=== PATIENT | male | born 1980 | race African-American/Black ===

== ENCOUNTER 2025-01-15 10:26 | Outpatient (REF) | payer OTHER, BC, SELFPAY ==
--- NOTE | ~2025-01-15 | XR_ITS ---
EXAMINATION: XR SHOULDER 2 OR MORE VIEWS RIGHT HISTORY: M25.519 - Pain in unspecified shoulder COMPARISON: There are no prior studies available for comparison. FINDINGS: Three views of the right shoulder are submitted. Osseous mineralization is normal. There is no fracture or dislocation. The glenohumeral joint is maintained. There is mild narrowing of the AC joint. The soft tissues are unremarkable. XR/XR shoulder RT min 2V IMPRESSION: Mild narrowing of the AC joint. Electronically signed by: Nickolas Ulloa MD 01/15/2025 02:39 PM EDT RP
--- OUTSIDE RECORDS SUMMARY | 2025-01-16 10:27 | XMS_ITS | Clinical Summary ---
Author Organization [facility] Address [address] [place] [address] Care Team Providers Care Health Safety Manager Name Role Phone Unavailable Primary Care Provider [...] 2023 Fecal DNA 2023 Flexible Sigmoidoscopy 2023 [id number] ( season) 2024 021, 10/25/2020 Alcohol and Drug Screen 06/24/2024 Depression Annual Screen 06/24/2024 Imm-Influenza (#1) 2025 Insurance [employer]
--- OUTSIDE RECORDS SUMMARY | 2025-01-16 10:27 | XMS_ITS | Clinical Summary ---
Author Organization [facility] ity Address [address] [place] [address] Care Team Providers Care Liquid Hydrogen Plant Operator Name Role Phone Unavailable Primary Care Provider [...]
--- OUTSIDE RECORDS SUMMARY | 2025-01-16 10:27 | XMS_ITS | Clinical Summary ---
Author Organization [facility] Address [address] [place] [address] Care Team Providers Care Mailhouse Operator Name Role Phone Kathi Boss CHLORINE OPERATOR Primary Care Provider +1- [phone] Allergies No known active allergies Medications No [...] on file Legal Sex Male 8:41 AM [facility] Gender Identity Not on file Sexual Orientation [...] Discontinued 01/16/2021, 10/25/2020 Insurance [employer] Care Teams Mailhouse Operator Relationship Specialty Start Date End Date Kathi Boss NP [address] [place] [id number] PCP - General Family Medicine 04/16/22
== END 2025-01-15 10:27 | disposition home or self-care (01) ==
LOC: HO.HOSX 10:26
PROVIDERS: Visit Provider Physician Assistant
DX: M19.011 Primary osteoarthritis, right shoulder (principal); M25.511 Pain in right shoulder; M24.811 Other specific joint derangements of right shoulder, not elsewhere classified
CPT/HCPCS: 73030; 99202

== ENCOUNTER 2025-01-15 14:22 | Outpatient (AMB) | payer OTHER, SELFPAY ==
--- OUTSIDE RECORDS SUMMARY | 2025-01-15 14:24 | XMS_ITS | Clinical Summary ---
Author Organization [facility] Address [address] [place] [address] Care Team Providers Care Medical Auditor Name Role Phone Kathi Boss AUTOMOTIVE WORKER Primary Care Provider +1- [phone] Allergies No known active allergies Medications No known medications Active Problems Problem Noted Date Diagnosed Date Mood disorder 04/16/2022 Overview (04/16/2022): Followed by psychology Immunizations Immunization Administration Dates Next Due Td, 2 Lf, Preservative Free, adsorbed 02/21/2014 Tdap 08/05/2017 Family History Medical History Relation Comments Heart attack Maternal Grandfather early 60's Heart attack Maternal Grandmother late 60's Relation Status Comments Father Alive Maternal Grandfather Maternal Grandmother Mother Alive Social History Tobacco Use Types Packs/Day Years Used Date Smoking Tobacco: Never Smokeless Tobacco: Never Alcohol Use Standard Drinks/Week Comments Yes 6 (1 standard drink = 0.6 oz pur e alcohol) PHQ-2 Answer Date Recorded Depression Risk (PHQ2) Score 0 08/2021 Sex and Gender Information Value Date Recorded Sex Assigned at Not on file Legal Sex Male 8:41 AM [facility] Gender Identity Not on file Sexual Orientation Not on file Last Filed Vital Signs Vital Sign Reading Time Taken Comments Blood Pressure 135/72 08/21/2022 10:01 AM EST Pulse 69 08/21/2022 10:01 AM EST Temperature 36.5 C (97.7 F) 08/21/2022 10:01 AM EST Respiratory Rate 14 07/09/2020 10:15 AM EST Oxygen Saturation 96% 08/21/2022 10:01 AM EST Inhaled Oxygen Concentration - - Weight 98.7 kg (217 lb 9.6 oz) 08/21/2022 10:01 AM EST Height 188 cm (6' 2 ) 07/04/2020 7:20 AM EST Body Mass Index 27.94 07/04/2020 7:20 AM EST Plan of Treatment Health Maintenance Due Date Last Done Comments CT Colonography 1978 Cologuard 1978 Colonoscopy 1978 Colorectal Cancer Screening 1978 FOBT/FIT 1978 Hepatitis C Screening 1978 Sigmoidoscopy 1978 PHQ-9 Depression Screen 1990 BESSY-7 Anxiety Screen 02/05/1996 Annual Preventive Exam 04/16/2023 04/16/2022 Influenza Vaccine (#1) 2025 DTaP,Tdap,and Td Vaccines (2 - Td or Tdap) 08/05/2027 08/05/2017, 02/21/2014 RSV Vaccine (SCDM) (1 - 1-do se 75+ series) 2053 COVID-19 Vaccine Discontinued 01/16/2021, 10/25/2020 Insurance [employer] Care Teams Medical Auditor Relationship Specialty Start Date End Date Kathi Boss NP [address] [place] [id number] PCP - General Family Medicine 04/16/22
--- OUTSIDE RECORDS SUMMARY | 2025-01-15 14:24 | XMS_ITS | Clinical Summary ---
Author Organization [facility] ity Address [address] [place] [address] Care Team Providers Care Heat Treat Technician Name Role Phone Unavailable Primary Care Provider Unavailabl e Social History Tobacco Use Types Packs/Day Years Used Date Smoking Tobacco: Never Assessed Sex and Gender Information Value Date Recorded Sex Assigned at Not on file Legal Sex Male 1:13 PM EST Gender Identity Not on file Sexual Orientation Not on file Plan of Treatment Health Maintenance Due Date Last Done Comments DTaP,Tdap,and Td Vaccines (1 - Tdap) 1997 Hepatitis B Vaccines (1 of 3 - 19+ 3-dose series) 1997 COVID-19 Vaccine (2023-2 5 season) 2024 Depression Screening 06/24/2024 Influenza Vaccine (#1) 2025 HIB Vaccines Aged Out No longer eligi ble based on patient's age to complete this topic HPV Vaccines Aged Out No longer eligi ble based on patient's age to complete this topic Hepatitis A Vaccines Aged Out No long er eligible based on patient's age to complete this topic IPV Vaccines Aged Out No longer eligi ble based on patient's age to complete this topic MMR Vaccines Aged Out No longer eligi ble based on patient's age to complete this topic Meningococcal ACWY Vaccine Aged Out N o longer eligible based on patient's age to complete this topic Meningococcal B Vaccine Aged Out No l onger eligible based on patient's age to complete this topic Pneumococcal Vaccine: Pediat rics (0 to 5 Years) and At-Risk Patients (6 to 49 Years) Aged Out No longer eligible b ased on patient's age to complete this topic RSV Immunization Patients Un elpidio 20 months Aged Out No longer eligible b ased on patient's age to complete this topic Varicella Vaccines Aged Out No longer eligible based on patient's age to complete this topic
--- OUTSIDE RECORDS SUMMARY | 2025-01-15 14:24 | XMS_ITS | Clinical Summary ---
Author Organization [facility] Address [address] [place] [address] Care Team Providers Care Caterer'S Aide Name Role Phone Unavailable Primary Care Provider Unavailabl e Source Comments PLEASE NOTE, if this patient is a minor, it may be UNLAWFUL to discuss sensitive information that is contained in these records (such as FAMILY PLANNING, MENTAL HEALTH or SUBSTANCE ABUSE) with the minor patient's parent or other person without the patient's specific authorization.[facility] Immunizations Immunization Administration Dates Next Due PFIZER COVID VACCINE, PURPLE CAP, 12+ 01/16/2021 ,10/25/2020 Social History Tobacco Use Types Packs/Day Years Used Date Smoking Tobacco: Never Assessed Social Connections Answer Date Recorded Social Connections and Isolation 0 10/25/2020 Financial Resource Strain Answer Date R ecorded Financial Resource Strain 0 2020 Stress Answer Date Recorded Stress 0 10/25/2020 Physical Activity Answer Date Recorded Physical Activity 0 10/25/2020 Food Insecurity Answer Date Recorded Food 0 10/25/2020 Transportation Needs Answer Date Record ed Transportation 0 10/25/2020 Housing Stability Answer Date Recorded Housing 0 10/25/2020 Safety and Environment Answer Date Joaquin rded Safety 0 10/25/2020 Utilities Answer Date Recorded Utilities 0 10/25/2020 Employment Answer Date Recorded Employment 0 10/25/2020 Sex and Gender Information Value Date Recorded Sex Assigned at Not on file Legal Sex Male 6:03 AM PDT Gender Identity Not on file Sexual Orientation Not on file Plan of Treatment Health Maintenance Due Date Last Done Comments Anxiety Screening 1978 Diabetes Screening 1978 Hepatitis C Screening 1978 Lipid Screening 1978 Tobacco Screening 1978 HIV Screening 1993 Hypertension Screening (#1) 02/05/1996 Imm-DTaP/Tdap/Td (1 - Tdap) 1997 Imm-Hepatitis B (1 of 3 - 19 + 3-dose series) 1997 CT Colonography 2023 Colonoscopy 2023 Colorectal Cancer Screening 2023 FIT/gFOBT 2023 Fecal DNA 2023 Flexible Sigmoidoscopy 2023 [id number] ( season) 2024 021, 10/25/2020 Alcohol and Drug Screen 06/24/2024 Depression Annual Screen 06/24/2024 Imm-Influenza (#1) 2025 Insurance [employer]
--- NOTE | 2025-01-15 14:38 | A.OFFVIS_ITS ---
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 Patient was seen at [facility] in [place] following his injury, they placed him on light duty until 10/26/24 and was ordered physical therapy. Patient reports pain is located on the top part of his shoulder, near his clavicle. He states ongoing pain that is described as a pinch sensation. His pain increases with throwing and pulling motions. Complaints of numbness and tingling with resting on his right side. He has attended physical therapy, with great improvement. 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 Musa is a 44-year-old right-hand dominant male who presents to the office today after a workman's comp injury that he sustained on 09/02/2024. He states t hat he was going to lift a large object up onto a truck. He felt immediate right shoulder pain on the top of his shoulder. After that he has been having difficulty with overhead motion. He has been attending physical therapy and has noticed a difference. However, he continues to have pain and difficulty with motion. [facility] Surgical History (Updated 01/15/25 @ 14:53 by MELQUIADES Virk) Hx of foot surgery Social History (Updated 01/15/25 @ 14:47 by SMA Marie) Patient Tobacco Use Status: Never used Tobacco Current occupation: food service driver, rt hand Review of Systems Const All systems reviewed & are unremarkable except as noted in HPI and below Physical Exam Vital Signs: BMI result Body Mass Index 28.9 Const General: cooperative, healthy appearing and no acute distress Resp Effort & Inspection: normal respiratory effort and able to speak in complete sentences Extrem Other: Right shoulder: Normal to inspection. Tenderness to palpation over the AC joint. Full shoulder ROM in all planes. Positive cross-body reach. 4/5 empty can. Negative drop arm. NVI. Assessment & Plan Assessment & Plan (1) Internal derangement of right shoulder: Code(s): M24.811 - Other specific joint derangements of right shoulder, not elsewhere classified Category: Medical (2) Arthritis of right acromioclavicular joint: Code(s): M19.011 - Primary osteoarthritis, right shoulder Category: Medical Plan Mr. Musa is a 44-year-old right-hand dominant male who presents to the office today after a workman's comp injury that he sustained on 09/02/2024. He states that he was going to lift a large object up onto a truck. He felt immediate right shoulder pain on the top of his shoulder. After that he has been having difficulty with overhead motion. He has been attending physical therapy and has noticed a difference. However, he continues to have pain and difficulty with motion. While in the office today, I discussed conservative treatment options including cortisone injection and physical therapy. At this time the patient has been medicating a lot of his time to physical therapy and rehabilitation. At this time I feel it is most appropriate to move forward with an MRI to further evaluate the integrity of the right shoulder and surrounding structures. He does have some weakness with rotator cuff testing and tenderness to palpation over the AC joint. He will continue his light duty restrictions for the next 6 weeks. An MRI has been ordered while in the office today and he will contact me once the MRI has been completed to schedule follow-up to discuss the treatment plan. X-rays of the right shoulder which were obtained while in the office today and were reviewed by me, Leah Stevens PA-C, revealed no acute abnormalities. AC joint arthritis. Orders: Orders XR shoulder RT min 2V Today M25.519 - Pain in unspecified shoulder Coding Level of Care Code New Pt Level 4 (99021) Diagnoses Internal derangement of right shoulder M24.811 Arthritis of right acromioclavicular joint M19.011
[2025-01-15 14:40] VITALS: BMI 28.9
== END 2025-01-15 15:11 | disposition home or self-care (01) ==
LOC: HO.HOS 14:23
PROVIDERS: Visit Provider Physician Assistant
DX: M24.811 Other specific joint derangements of right shoulder, not elsewhere classified (principal); M19.011 Primary osteoarthritis, right shoulder
CPT/HCPCS: 99204

== ENCOUNTER → 2025-01-15 14:26 | Outpatient (BNV) | payer OTHER, SELFPAY | PROVIDERS: Visit Provider Radiology Diagnostic Radiology | DX: M19.011 Primary osteoarthritis, right shoulder (principal) | CPT/HCPCS: 73030 ==

== ENCOUNTER → 2025-02-10 17:49 | Outpatient (BNV) | payer OTHER, SELFPAY | PROVIDERS: Visit Provider Specialist | DX: M19.011 Primary osteoarthritis, right shoulder (principal) | CPT/HCPCS: 73221 ==

== ENCOUNTER 2025-02-10 18:47 | Outpatient (REF) | payer OTHER, SELFPAY ==
--- NOTE | ~2025-02-10 | MR_ITS ---
CLINICAL HISTORY: INTERNAL DERANGEMENT MR right shoulder without gadolinium Comparison: None provided Findings: No acute fracture or pathologic bone lesion. There are arthritic changes in the acromioclavicular joint. Type II acromion. No joint effusion. No rotator cuff tears. No tears of the long head of biceps tendon. Glenoid labrum is intact. IMPRESSION: 1. No acute findings. 2. AC joint arthritic changes This document has been electronically signed by: Alo Weathers MD on 02/12/2025 09:06:46
--- OUTSIDE RECORDS SUMMARY | 2025-02-10 18:50 | XMS_ITS | Clinical Summary ---
Author Organization [facility] ity Address [address] [place] [address] Care Team Providers Care Umbrella Mender Name Role Phone Unavailable Primary Care Provider [...]
--- OUTSIDE RECORDS SUMMARY | 2025-02-10 18:50 | XMS_ITS | Clinical Summary ---
Author Organization [facility] Address [address] [place] [address] Care Team Providers Care Pump Station Operator Name Role Phone Kathi Boss SPAR MACHINE OPERATOR HELPER Primary Care Provider +1- [phone] Allergies No known active allergies Medications No [...] on file Legal Sex Male 8:41 AM [facility] Gender Identity Not on file Sexual Orientation [...] Discontinued 01/16/2021, 10/25/2020 Insurance [employer] Care Teams Pump Station Operator Relationship Specialty Start Date End Date Kathi Boss NP [address] [place] [id number] PCP - General Family Medicine 04/16/22
== END 2025-02-10 18:48 | disposition home or self-care (01) ==
LOC: HO.MRI 18:47
PROVIDERS: Visit Provider Physician Assistant
DX: M24.811 Other specific joint derangements of right shoulder, not elsewhere classified (principal); M19.011 Primary osteoarthritis, right shoulder
CPT/HCPCS: 73221

== ENCOUNTER 2025-03-02 11:21 | Outpatient (AMB) | payer OTHER, SELFPAY ==
--- NOTE | 2025-03-02 11:26 | A.OFFVIS_ITS ---
Intake Visit Reasons: ov- RT shoulder MRI review, DOI 09/02/24 Intake Note: Arie is a 45 year old right hand dominant male who presents today for a MRI review of his right shoulder, WC 09/02/24. Patient reports he has improved in his pain slightly with the help of physical therapy and working light duty. He mentions that he feels an ache when he is doing a pulling motion. IMPRESSION: 1. No acute findings. 2. AC joint arthritic changes Allergies No Known Allergies Allergy (Verified 03/02/25 11:31) HPI HPI ov- RT shoulder MRI review, DOI 09/02/24: Details: Mr. Musa is a 45-year-old male who presents to the office today for follow-up status post right shoulder MRI review. Date of injury was on 09/02/2024 when he was trying to lift a large object onto a truck. This happened during work and therefore was a workman's comp claim. Patient states that the right shoulder pain has started to resolve. 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 Overall he is feeling improvement. [facility] Surgical History (Updated 01/15/25 @ 14:53 by MELQUIADES Virk) Hx of foot surgery Social History Patient Tobacco Use Status: Never used Tobacco Current occupation: limousine driver, rt hand Review of Systems Const All systems reviewed & are unremarkable except as noted in HPI and below Physical Exam Const General: cooperative, healthy appearing and no acute distress Resp Effort & Inspection: normal respiratory effort and able to speak in complete sentences Extrem Other: Right shoulder: Normal to inspection. Tenderness to palpation over the AC joint. Full shoulder ROM in all planes. Positive cross-body reach. 4/5 empty can. Negative drop arm. NVI. Psych Appearance: grossly normal Mental Status: mental status grossly normal Attitude: cooperative Assessment & Plan Assessment & Plan (1) Internal derangement of right shoulder: Code(s): M24.811 - Other specific joint derangements of right shoulder, not elsewhere classified Category: Medical (2) Arthritis of right acromioclavicular joint: Code(s): M19.011 - Primary osteoarthritis, right shoulder Category: Medical Plan Mr. Musa is a 45-year-old male who presents to the office today for follow-up status post right shoulder MRI review. Date of injury was on 09/02/2024 when he was trying to lift a large object onto a truck. This happened during work and therefore was a workman's comp claim. Patient states that the right shoulder pain has started to resolve. 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 Overall he is feeling improvement. While in the office today, I reviewed the right shoulder MRI which was obtained on 02/12/2025. Impression of the right shoulder was no acute findings with AC joint arthritic changes. Patient would like to return to work full-time regular duty beginning Saturday03/08/2025. A work note has been provided to him while in the office today. He will follow up PRN, sooner if needed. Coding Level of Care Code Est Pt Level 3 (80552) Diagnoses Internal derangement of right shoulder M24.811 Arthritis of right acromioclavicular joint M19.011
--- OUTSIDE RECORDS SUMMARY | 2025-03-02 13:48 | XMS_ITS | Clinical Summary ---
Author Organization [facility] [address] ity Address [address] [place] [address] Care Team Providers Care Tractor Mechanic Name Role Phone Unavailable Primary Care Provider [...]
--- OUTSIDE RECORDS SUMMARY | 2025-03-02 13:48 | XMS_ITS | Clinical Summary ---
Author Organization [facility] Address [address] [place] [address] Care Team Providers Care Ceramic Worker Name Role Phone Kathi Boss CHEESE PRODUCTION SUPERVISOR Primary Care Provider +1- [phone] Allergies No known active allergies Medications No [...] on file Legal Sex Male 8:41 AM [facility] Gender Identity Not on file Sexual Orientation [...] Discontinued 01/16/2021, 10/25/2020 Insurance [employer] Care Teams Ceramic Worker Relationship Specialty Start Date End Date Kathi Boss NP [address] [place] [id number] PCP - General Family Medicine 04/16/22
--- OUTSIDE RECORDS SUMMARY | 2025-03-02 13:48 | XMS_ITS | Clinical Summary ---
Author Organization [facility] Address [address] [place] [address] Care Team Providers Care Allergist Immunologist Name Role Phone Unavailable Primary Care Provider [...] 2023 Fecal DNA 2023 Flexible Sigmoidoscopy 2023 Alcohol and Drug Screen 06/24/2024 Depression Annual Screen 06/24/2024 [id number] ( season) 2025 021, 10/25/2020 Imm-Influenza (#1) 2025 Insurance [employer]
== END 2025-03-02 11:43 | disposition home or self-care (01) ==
LOC: HO.HOS 11:22
PROVIDERS: Visit Provider Physician Assistant
DX: M24.811 Other specific joint derangements of right shoulder, not elsewhere classified (principal); M19.011 Primary osteoarthritis, right shoulder
CPT/HCPCS: 99213

== ENCOUNTER → 2025-03-02 11:21 | Outpatient (BNVA) | payer OTHER, SELFPAY | PROVIDERS: Visit Provider Physician Assistant | DX: M24.811 Other specific joint derangements of right shoulder, not elsewhere classified (principal); M19.011 Primary osteoarthritis, right shoulder | CPT/HCPCS: 99212 ==

== ENCOUNTER 2025-03-04 15:08 | Outpatient (REF) | payer OTHER, SELFPAY ==
--- NOTE | 2025-03-04 15:10 | EMG_ITS ---
Chief complaint: In October 2024, patient had work injury pulling himself up, resulting right shoulder pain and paresthesias down the right arm. Two weeks after injury, noted atrophy in right FDI. On exam, looks like he has a partial benediction sign with right 4th and 5th digits flexed at DIP. There is weakness on 1st dorsal interosseous with atrophy. Proximal arm strength is normal. Reason for referral: Evaluate for ulnar neuropathy Referred by: Elio ANNE Procedure done: Right upper extremity NCS/EMG Precautions and/or limitations: None The limb temperature was monitored continuously and remained between 32-36 degrees C during the performance of the NCS. Ulnar motor NCS was performed with moderate elbow flexion between 70-90 degrees, with across-elbow distance of 10 cm. Nerve Conduction Studies Anti Sensory Summary Table ?Stim Site NR Onset (ms) Norm Onset (ms) Peak (ms) Norm Peak (ms) O-P Amp (?V) Norm O-P Amp Site1 Site2 Delta-0 (ms) Dist (cm) Marcellus (m/s) Norm Marcellus (m/s) Right DorsCutan Anti Sensory (Dorsum 5th MC) Wrist ? 3.0 4.1 11.4 Wrist Dorsum 5th MC 3.0 0.0 Right Lat Ante Brach Cutan Anti Sensory (Lat Forearm) Lat Biceps ? 0.9 1.3 5.0 Lat Biceps Lat Forearm 0.9 0.0 Right Med Ante Brach Cutan Anti Sensory (Med Forearm) Elbow NR Elbow Med Forearm 0.0 Right Median Anti Sensory (2nd Digit) Wrist ? 2.6 3.2 <3.6 7.7 >10 Wrist 2nd Digit 2.6 14.0 54 Right Radial Anti Sensory (Thumb) Forearm ? 1.8 2.4 <3.1 23.7 Forearm Thumb 1.8 0.0 Right Ulnar Anti Sensory (5th Digit) Wrist ? 2.5 3.2 <3.7 17.7 >15.0 Wrist 5th Digit 2.5 14.0 56 Motor Summary Table ?Stim Site NR Onset (ms) Norm Onset (ms) O-P Amp (mV) Norm O-P Amp iAmp (mV) Amp (1st) (%) Site1 Site2 Delta-0 (ms) Dist (cm) Marcellus (m/s) Norm Marcellus (m/s) Right Median Motor (Abd Poll Brev) Wrist ? 3.5 <3.9 12.9 >4.5 14.3 100.0 Elbow Wrist 4.6 24.0 52 >45 Elbow ? 8.1 12.5 13.9 96.9 Right Ulnar Motor (Abd Dig Minimi) Wrist ? 3.0 <3.0 4.3 >5 6.1 100.0 B Elbow Wrist 3.8 22.0 58 >45 B Elbow ? 6.8 3.2 4.5 74.4 A Elbow B Elbow 1.2 10.0 83 >45 A Elbow ? 8.0 3.2 4.5 74.4 Right Ulnar (FDI) Motor (FDI) Wrist ? 5.5 <3.0 1.7 >5 2.2 100.0 B Elbow Wrist 4.3 22.0 51 >45 B Elbow ? 9.8 1.7 2.0 100.0 A Elbow B Elbow 1.1 10.0 91 >45 A Elbow ? 10.9 1.7 2.0 100.0 EMG ?Side Muscle Nerve Root Ins Act Fibs Psw Amp Dur Poly Recrt Int Pat Comment Right 1stDorInt Ulnar C8-T1 Incr 1+ 1+ Nml Nml 0 Reduced Complete Right FlexCarRad Median C6-7 Nml Nml Nml Nml Nml 0 Nml Complete Right FlexCarpiUln Ulnar C8,T1 Nml Nml Nml Nml Nml 0 Nml Complete Right Biceps Musculocut C5-6 Nml Nml Nml Nml Nml 0 Nml Complete Right Triceps Radial C6-7-8 Nml Nml Nml Nml Nml 0 Nml Complete Right Deltoid Axillary C5-6 Nml Nml Nml Nml Nml 0 Nml Complete Right Abd Poll Brev Median C8-T1 Nml Nml Nml Nml Nml 0 Nml Complete Right ABD Dig Min Ulnar C8-T1 Nml Nml Nml Nml Nml 0 Nml Complete Right ExtIndicis Radial (Post Int) C7-8 Incr 1+ 1+ Incr Incr 0 Reduced Complete Paraspinal EMG ?Side Muscle Nerve Root Ins Act Fibs Psw Comment Right Cervical Upper Rami Nml Nml Nml Right Cervical Mid Rami Nml Nml Nml Right Cervical Lower Rami Nml Nml Nml FINDINGS: Right ulnar motor nerve, recording on both FDI and ADM, showed small amplitudes without any from block across the elbow. Right median sensory nerve showed small amplitude but normal peak latency. Right MAC showed absent response. All other nerves tested were within normal. Concentric needle EMG was performed in selected muscles of the right upper extremity and cervical paraspinals. Study revealed signs of electric abnormalities as shown in the table above. Right FDI showed increased insertional activity, PSWs and fibrillations. With reduced recruitment. Right extensor indicis showed increased insertional activity, PSWs and fibrillations, increased duration and amplitude, and reduced recruitment. IMPRESSION: 1. This is an abnormal study. 2. There is electrodiagnostic evidence for severe subacute/chronic lower trunk brachial plexopathy on the right. 3. There is no electrodiagnostic evidence for median neuropathy, ulnar neuropathy, or cervical radiculopathy. CLINICAL COMMENT: A follow up study in 3-6 months may be helpful to determine whether there has been reinnervation of muscles of the lower trunk. Thank you for your kind referral. Jayna Goodwin MD, CORA Board Certified, [place] Board of Physical Medicine and Rehabilitation (ABPMR) Board Certified, [place] Board of Electrodiagnostic Medicine (ABEM) [place] [id number] [facility]
--- OUTSIDE RECORDS SUMMARY | 2025-03-04 18:33 | XMS_ITS | Clinical Summary ---
Author Organization [facility] Address [address] [place] [address] Care Team Providers Care Fur Sorter Name Role Phone Kathi Boss COORDINATOR CARDIOPULMONARY SERVICES Primary Care Provider +1- [phone] Allergies No known active allergies Medications No [...] file Legal Sex Male 8:41 AM [facility] Gender Identity Not on file Sexual [...] Discontinued 01/16/2021, 10/25/2020 Insurance [employer] Care Teams Fur Sorter Relationship Specialty Start Date End Date Kathi Boss NP [address] [place] [id number] PCP - General Family Medicine 04/16/22
--- OUTSIDE RECORDS SUMMARY | 2025-03-04 18:33 | XMS_ITS | Clinical Summary ---
Author Organization [facility] Address [address] [place] [address] Care Team Providers Care Community Service Organization Director Name Role Phone Unavailable Primary Care Provider [...] Drug Screen 06/24/2024 Depression Annual Screen 06/24/2024 [id number] ( season) 2025 021, 10/25/2020 Imm-Influenza (#1) 2025 Insurance [employer]
== END 2025-03-04 15:09 | disposition home or self-care (01) ==
LOC: HO.NEURO 15:08
DX: R20.0 Anesthesia of skin (principal); R20.2 Paresthesia of skin; R94.131 Abnormal electromyogram [EMG]
CPT/HCPCS: 95886; 95910

== ENCOUNTER → 2025-03-04 15:10 | Outpatient (BNV) | payer OTHER, SELFPAY | PROVIDERS: Visit Provider Physical Medicine & Rehabilitation | DX: G54.0 Brachial plexus disorders (principal) | CPT/HCPCS: 95886; 95910 ==

== ENCOUNTER 2025-03-10 09:58 | Outpatient (AMB) | payer OTHER, SELFPAY ==
--- NOTE | 2025-03-10 10:06 | MHC.OFFVIS ---
Vital Signs 03/10/25 10:09 Height 6 ft 2 in Weight 225 lb BMI 28.9 Handedness Right Intake Visit Reasons: NewProb: right hand injury/EMG review Intake Note: Arie is a 44-year-old right-hand dominant male who presents to the office today after a workman's comp injury that he sustained on 09/02/2024. Patient says he was pulling himself up into his work truck when he hurt his right wrist. He says he also hurt the right shoulder and the hand pain he is experiencing is an extension of the right shoulder pain. Reports he is getting muscle spasms in his right thumb. He describes his symptoms as a muscle cramp, saying the finger occasionally locks on him. For relief he says he pulls on the right thumb to pop it. Patient reports he is lacking gripping strength in the right hand which is affecting the way he grabs onto objects.When I asked if he is dropping things he says it feels like a whole new sensation. IMPRESSION: 1. This is an abnormal study. 2. There is electrodiagnostic evidence for severe subacute/chronic lower trunk brachial plexopathy on the right. 3. There is no electrodiagnostic evidence for median neuropathy, ulnar neuropathy, or cervical radiculopathy. CLINICAL COMMENT: A follow up study in 3-6 months may be helpful to determine whether there has been reinnervation of muscles of the lower trunk. Allergies No Known Allergies Allergy (Verified 03/10/25 10:13) HPI HPI NewProb: right hand injury/EMG review: Details: Arie is a 44-year-old right-hand dominant male who presents to the office today after a workman's comp injury that he sustained on 09/02/2024. Patient says he was pulling himself up into his work truck when he hurt his right wrist. He says he also hurt the right shoulder and the hand pain he is experiencing is an extension of the right shoulder pain. Reports he is getting muscle spasms in his right thumb. He describes his symptoms as a muscle cramp, saying the finger occasionally locks on him. For relief he says he pulls on the right thumb to pop it. Patient reports he is lacking gripping strength in the right hand which is affecting the way he grabs onto objects.When I asked if he is dropping things he says it feels like a whole new sensation. IMPRESSION: 1. This is an abnormal study. 2. There is electrodiagnostic evidence for severe subacute/chronic lower trunk brachial plexopathy on the right. 3. There is no electrodiagnostic evidence for median neuropathy, ulnar neuropathy, or cervical radiculopathy. CLINICAL COMMENT: A follow up study in 3-6 months may be helpful to determine whether there has been reinnervation of muscles of the lower trunk. PFSH Surgical History (Updated 01/15/25 @ 14:53 by Aleena Juares Lizzette) Hx of foot surgery Social History (Updated 03/10/25 @ 10:14 by MELISSA Payne) Alcohol intake: current Alcohol intake frequency: holidays/special occasions only Patient Tobacco Use Status: Never used Tobacco Current occupational status: employed Current occupation: wheelchair van driver, rt hand Review of Systems Const All systems reviewed & are unremarkable except as noted in HPI and below Physical Exam Vital Signs: BMI result Body Mass Index 28.9 Extrem Other: Patient is alert, oriented, and in no acute distress. Neuro: Diminished sensation of the tip of the right thumb and index finger Normal sensation of the tips of all other digits of the right hand in the office today Vascular: Cap refill brisk Pain: No tenderness to palpation anywhere throughout the right hand or wrist Some discomfort with range of motion of the right hand ROM: There is noted to be a been addiction sign of the right small finger with flexion of the IP joint Patient is unable to actively extend Patient is unable to actively adduct the right thumb against pressure [employer] Operator strength significantly weakened on the right compared to the left Skin: No lacerations or abrasions. General: There is noted to be very significant intrinsic wasting, particularly of the 1st webspace of the right hand No ecchymosis, erythema, or evidence of infection. Psych: Appears grossly normal Affect normal e Assessment & Plan Assessment & Plan (1) Brachial plexopathy: Code(s): G54.0 - Brachial plexus disorders Category: Medical Plan 1. 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 Hudson, and a collaborative treatment plan was formed: At this time, Dr. Hudson feels that his most appropriate to refer the patient to [facility] hand surgery for treatment of brachial plexopathy, given the patient's duration and characteristics of symptoms Patient is referred to [facility] hand surgery for further treatment of this brachial plexopathy Patient is educated to continue working on range of motion and strengthening of the right hand as much as possible prior to being seen by [facility] Patient understands this in his amenable to this plan Patient should follow-up at [facility] for further treatment, sooner with any acute concerns Orders: Referrals Orthopedics Referral G54.0 - Brachial plexus disorders Coding Level of Care Code Est Pt Level 3 (07296) Diagnoses Brachial plexopathy G54.0
[2025-03-10 10:09] VITALS: BMI 28.9
--- OUTSIDE RECORDS SUMMARY | 2025-03-10 11:57 | XMS_ITS | Clinical Summary ---
Author Organization [facility] Address [address] [place] [address] Care Team Providers Care Baggage Porter Head Name Role Phone Kathi Boss [employer] Primary Care Provider [phone] Allergies No known active allergies Medications No [...] on file Legal Sex Male 8:41 AM [facility] Gender Identity Not on file [...] Discontinued 01/16/2021, 10/25/2020 Insurance [employer] Care Teams Baggage Porter Head Relationship Specialty Start Date End Date Kathi Boss NP [address] [place] [id number] PCP - General Family Medicine 04/16/22
--- OUTSIDE RECORDS SUMMARY | 2025-03-10 11:57 | XMS_ITS | Clinical Summary ---
Author Organization [facility] ity Address [address] [place] [address] Care Team Providers Care Control Technician Name Role Phone Unavailable Primary Care [...] of 3 - 19+ 3-dose series) 1997 Depression Screening 06/24/2024 COVID-19 Vaccine ( - 2023-2 5 season) 2025 Influenza Vaccine (#1) 2025 HIB Vaccines Aged [...]
--- OUTSIDE RECORDS SUMMARY | 2025-03-10 11:57 | XMS_ITS | Clinical Summary ---
Author Organization [facility] Address [address] [place] [address] Care Team Providers Care Livestock Commission Agent Name Role Phone Unavailable Primary Care Provider [...] Drug Screen 06/24/2024 Depression Annual Screen 06/24/2024 [id number] ( season) 2025 021, 10/25/2020 Imm-Influenza (#1) 2025 Insurance [employer]
== END 2025-03-10 10:30 | disposition home or self-care (01) ==
DX: G54.0 Brachial plexus disorders (principal)
CPT/HCPCS: 99213

== ENCOUNTER → 2025-03-10 09:58 | Outpatient (BNVA) | payer OTHER, SELFPAY | DX: G54.0 Brachial plexus disorders (principal) | CPT/HCPCS: 99212 ==